=== PATIENT | male | born 2005 | race Caucasian/White ===

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

== ENCOUNTER 2024-05-19 11:04 | Outpatient (CLI) | payer OTHER, SELFPAY | END 2024-05-19 11:05 | disposition home or self-care (01) | LOC: NFLDREF 05-21 17:20 | PROVIDERS: PCP Family Medicine; Referring Provider Family Medicine; Visit Provider Physician Assistant Medical | DX: Z00.00 Encounter for general adult medical examination without abnormal findings (principal); R53.83 Other fatigue; R06.83 Snoring; F41.1 Generalized anxiety disorder | CPT/HCPCS: 82306; 82607; 82728; 84443 ==